=== PATIENT | male | born 1955 | race Caucasian/White ===

== ENCOUNTER 2020-07-19 11:49 | Day surgery (SDC) | payer OTHER, SELFPAY ==
--- NOTE | 2020-07-16 14:16 | P.CONAN_ITS ---
Documented by User: Sandie Do 07/16/20 14:17 HPI - Anesthesia Eval Consult details Narrative: 65yo M for Upper Endoscopy with balloon dilation and Colonoscopy [facility] Past Medical History Medical History GERD (gastroesophageal reflux disease) HTN (hypertension) Pyloric stenosis Surgical History Surgical History History of ear surgery History of esophagogastroduodenoscopy (EGD) Social History Social History Smoking Status: Never smoker Use of substances other than those prescribed or required for medical reasons: No Advance Directives: No Advance Directives Information Provided: Yes Meds Allergies Allergy/AdvReac Type Severity Reaction Status Date / Time No Known Allergies Allergy Verified 07/19/20 12:08 Home Medications Medication Instructions Recorded Confirmed Type lisinopril 07/16/20 History omeprazole 07/16/20 07/16/20 History Exam Exam Date and Time: July 16, 2020 141 Assessment and Plan Assessment Anesthesia Assessment: Chart Reviewed Documented by User: Agustina Christensen 07/19/20 13:17 [facility] Past Medical History Medical History GERD (gastroesophageal reflux disease) HTN (hypertension) Pyloric stenosis Surgical History Surgical History History of ear surgery History of esophagogastroduodenoscopy (EGD) Social History Social History Smoking Status: Never smoker Use of substances other than those prescribed or required for medical reasons: No Advance Directives: No Advance Directives Information Provided: Yes Meds Allergies Allergy/AdvReac Type Severity Reaction Status Date / Time No Known Allergies Allergy Verified 07/19/20 12:08 Home Medications Medication Instructions Recorded Confirmed Type lisinopril 07/16/20 History omeprazole 07/16/20 07/16/20 History Exam Airway Mallampati Class: II TM Dist: >3cm Neck ROM: Full Heart: RRR Lungs: CTA BL Assessment and Plan Assessment Anesthesia Assessment: Anesthesia Plan Discussed and Chart Reviewed Final Anesthetic Review NPO: Yes ASA Class: II Final Preanesthetic Review: Meds/Allgs Chart Reviewed and Consent Obtained/Reviewed Patient Risk: Intermediate Procedure Risk: Intermediate Anesthetic Plan Anesthetic Plan: MAC: Disposition: Standard PACU
[2020-07-19 12:09] VITALS: BMI 25.5
[2020-07-19 12:15] VITALS: BP 150/79; PULSE 59; RESP 16; TEMP 35.9; O2SAT 97
[2020-07-19] MEDS: Lactated Ringers 1,000 ML 100 ML IVCONT (12:28)
[2020-07-19 14:28] VITALS: BP 136/80; PULSE 72; RESP 18; TEMP 36.1; O2SAT 96
--- NOTE | 2020-07-19 14:39 | PM.OP ---
Brief Operative Note Date of Service: 07/19/20 Pre-op diagnosis: Dysphagia, Colorectal cancer screening Post-op diagnosis: other (Esophageal stricture, Hiatal hernia, colon polyp, diverticulosis) Procedure: EGD with Balloon Dilation of esophageal stricture, Colonoscopy to cecum and TI with biopsy and removal of polyp Surgeon: Pee Barron Anesthesia: MAC Estimated blood loss (mL): 3.0 Pathology: other (A. Cecal polyp) Condition: stable Disposition: PACU
[2020-07-19 14:43] VITALS: BP 160/83; PULSE 56; RESP 18; TEMP 36.1; O2SAT 97
--- NOTE | 2020-07-19 17:25 | OP_ITS ---
SURGEON: Pee Barron MD INDICATIONS: The patient presents for evaluation of gastroesophageal reflux, dysphagia, and colorectal cancer screening. Full consent has been obtained from him for both procedures, including risks of bleeding and perforation. PREOPERATIVE DIAGNOSIS: POSTOPERATIVE DIAGNOSIS: PROCEDURE PERFORMED: Esophagogastroduodenoscopy with balloon dilation of esophageal stricture, and colonoscopy to cecum with biopsy and removal of polyp. ESTIMATED BLOOD LOSS: COMPLICATIONS: ANESTHESIA: Monitored anesthesia care. ASSISTANTS: SPECIMENS: DESCRIPTION OF PROCEDURE: The patient was placed in the left lateral decubitus position. The Olympus video gastroscope was passed in the posterior oropharynx and upper esophagus under direct vision. The scope was passed slowly into the distal esophagus. The gastroesophageal junction appeared at 36 cm. This area was notable for a circumferential fibrotic benign-appearing stricture, which allowed easy passage of the scope into the stomach. There was a small hiatal hernia. The scope was advanced to pylorus and duodenum cannulated to the descending portion. The duodenum including the bulb appeared normal without mass or ulceration. The scope was withdrawn back to the stomach. The gastric antrum and body appeared normal with good peristalsis. The scope was retroflexed visualizing the proximal stomach carefully, which appeared normal, without any sign of mass or ulceration. The scope was straightened and withdrawn back to the esophagus. Given the symptomatology, I did use a [employer] Incremental balloon to dilate the esophageal stricture from 18 mm to 19 mm to 20 mm at the recommended pressure for between 30 and 60 seconds each. Post dilation, there was clear disruption of the stricture with some heme noted. There was no sign of any esophagitis nor Plunkett's esophagus. The scope was withdrawn from the patient. He was turned around for the colonoscopy. The digital rectal exam revealed no abnormalities. The Olympus video pediatric colonoscope was entered into the rectum and advanced easily to the cecum. Once in the cecum, I did identify cecal pouch with appendiceal orifice and a normal-appearing ileocecal valve. The terminal ileum was cannulated and appeared normal. The scope withdrawn back in the colon. The entire cecum and ileocecal valve appeared normal other than an approximately 3 or 4 mm polyp near the appendiceal orifice that was biopsied and completely removed with cold biopsy forceps. The scope was then slowly withdrawn assessing all mucosal surfaces carefully. Preparation was excellent. I did not visualize any sign of other polyps, colitis, or angiodysplasia. There was a mild amount of sigmoid diverticulosis. In the rectum, scope was retroflexed visualizing small internal hemorrhoids, but no other pathology. The rectal mucosa appeared normal. The scope was straightened and withdrawn from the patient. He tolerated both procedures well and was returned to the recovery area in stable condition. IMPRESSION: 1. Distal esophageal stricture, status post balloon dilation. 2. Small hiatal hernia. 3. Small colon polyp, status post biopsy removal. 4. Diverticulosis. 5. Internal hemorrhoids. PLAN: The results of the biopsy will be checked. If the colon polyp is a tubular adenoma, I would recommend a followup colonoscopy in 5 years. If it is only hyperplastic, I would recommend a followup colonoscopy in 10 years. He has been using omeprazole 20 mg daily and I shall increase that to 20 mg b.i.d. for 1 month and then go back to once a day thereafter. He was advised to see me in 2 to 3 months for a followup visit. MD ANTHONY De Anda/WILLIS / [id number]
== END 2020-07-19 15:01 | disposition home or self-care (01) ==
PROVIDERS: PCP Internal Medicine; Visit Provider Internal Medicine
PROC: (CPT 45380; principal; 2020-07-19 14:30)
DX: Z12.11 Encounter for screening for malignant neoplasm of colon (principal); D12.0 Benign neoplasm of cecum; K57.30 Diverticulosis of large intestine without perforation or abscess without bleeding; K64.8 Other hemorrhoids; K22.2 Esophageal obstruction; K21.9 Gastro-esophageal reflux disease without esophagitis; K44.9 Diaphragmatic hernia without obstruction or gangrene; I10 Essential (primary) hypertension; Z79.899 Other long term (current) drug therapy
CPT/HCPCS: 45380; 43249; 88305; C1726

== ENCOUNTER 2023-02-24 21:29 | Emergency (ER) | payer OTHER, SELFPAY ==
[2023-02-24 21:45] VITALS: BP 167/83; PULSE 71; RESP 16; TEMP 37.1; O2SAT 95; BMI 26.7
--- NOTE | 2023-02-25 00:51 | ED.GENADULT ---
HPI - General Adult General Chief complaint: Skin/Abscess/Foreign Body Stated complaint: body rash Time Seen by Provider: 02/25/23 00:20 Source: patient, family (), RN notes reviewed and old records reviewed Mode of arrival: ambulatory Limitations: no limitations History of Present Illness HPI narrative: 67-year-old male with past medical history significant for hypertension, GERD presents for evaluation of a rash. Patient reports that 10 days ago he was out in the yard and ?I got bit by something on the back of her neck. ? He states that 2 days later he has swelling around his eyes and face. [facility] felt as though it was a delayed allergic reaction and discharge the patient with prednisone and an EpiPen although he did not use the EpiPen. Patient reports that he then developed a red macular papular rash despite a prednisone taper and followed up with urgent care about 5 days ago Urgent care for the patient had poison shagufta and prescribed another course of prednisone which the patient was taking 30 mg daily instead of the prescribed taper for his . He has also been using hydroxyzine 25 mg without any improvement in his itching rash The patient states that the rash is both itchy and painful. Today his noticed that he had some bruising to his bilateral flanks/abdomen which led the patient to the ER today. Related Data Home Medications Medication Instructions Recorded Confirmed lisinopril 07/16/20 omeprazole 07/16/20 07/16/20 Allergies Allergy/AdvReac Type Severity Reaction Status Date / Time No Known Allergies Allergy Verified 07/19/20 12:08 Review of Systems Constitutional: Constitutional: Reports as per HPI, Denies chills, Denies fatigue, Denies fever(s) and Denies headache(s) ENT: Denies headache(s) Cardiovascular: Cardiovascular: Denies chest pain and Denies dyspnea Respiratory: Respiratory: Denies cough and Denies dyspnea Gastrointestinal: Gastrointestinal: Denies abdominal pain, Denies constipation and Denies vomiting Genitourinary: Genitourinary: Denies difficulty urinating and Denies dysuria Integumentary/Breasts: Skin/Breast: Reports pruritus, Reports erythema and Reports rash Neurologic: Denies headache(s) and Denies focal weakness Endocrine: Endocrine: Denies fatigue [facility] Past Medical History Medical History GERD (gastroesophageal reflux disease) HTN (hypertension) Pyloric stenosis Surgical History History of ear surgery History of esophagogastroduodenoscopy (EGD) Social History Social History Advance Directives: No Advance Directives Information Provided: Yes Physical Exam ED Vital Signs: Vital Signs - 24 hr 02/24/23 21:45 Temperature 98.7 F Pulse Rate 71 Respiratory Rate 16 Blood Pressure 167/83 H Pulse Oximetry 95 Oxygen Delivery Method Room Air BMI result Body Mass Index 26.7 Const General: healthy appearing, comfortable, no acute distress, alert and awake Nutritional Appearance: well nourished Orientation/consciousness: patient oriented x3 HENMT Head: Yes normocephalic and Yes atraumatic Eyes Eyelids: Yes eyelids normal Conjunctivae: conjunctivae normal Sclerae: sclerae normal Corneas: corneas normal Pupils: Equal, round and reactive pupils present EOM: EOMs intact bilaterally Neck Neck: Yes full ROM Resp Effort & Inspection: normal respiratory effort, able to speak in complete sentences and not labored Cardio Rate: regular rate Rhythm: regular rhythm GI Inspection: No distended Skin Other: Patient has diffuse, maculopapular rash to most of his legs. He does have an area of the right santos that appears consistent with vasculitis with small petechiae. The rash to his abdomen/both flanks it is consistent with urticaria, no obvious macular papular lesions in this area. No significant facial edema at this time. No erythema migrans General skin exam: elasticity normal Neuro General: patient oriented x3 Cranial nerves: Yes Equal, round and reactive pupils present and Yes Bilaterally intact EOM present Cognition (Neuro): normal cognition Extrem Other: Moving all extremities well without any obvious deformities Course Reevaluation(s) Reevaluation #1: Patient's labs reviewed without any concerning abnormalities. I discussed this with the patient. He will continue symptomatic care and he will follow-up with dermatology at the [place]. Time: 01:48 Medical Decision Making Medical Decision Making MDM Narrative: 67-year-old male presents for evaluation of a rash. He has completed 2 courses of prednisone in the last 10 days he has been taking antihistamines without improvement. Due to the development of new symptoms including ecchymosis, we will check labs to check platelet count, coags. The rash does not appear consistent with bacterial infection. Tick-borne studies were ordered. We can rule out ITP/TTP, the patient can likely be discharged to follow-up with dermatology Differential Diagnosis Differential Diagnoses: The differential diagnosis associated with the presentation includes Acute rash Vasculitis Allergic reaction Urticaria Cellulitis ITP TTP Lab Data MDM Lab Attestation statement: I reviewed the patient's lab results. Patient has a mild leukocytosis of 12.4 kg. This may be reactive to his prednisone use. Hemoglobin within normal limits at 14.1 with a hematocrit just below normal at 40.0. Sodium potassium within normal limits, chloride is just above normal 111, CO2 is psis below normal at 21. Patient's renal function is significant for a BUN of 20 it is just above normal, creatinine of 1.01 which is within normal limits. No significant transaminitis 02/25/23 01:04 02/25/23 01:04 Labs: Lab Results 02/25/23 02/25/23 02/25/23 Range/Units 01:04 01:04 01:04 WBC 12.4 H (4.8-10.8) X10*3/uL RBC 4.83 (4.60-5.80) X10*6/uL Hgb 14.1 (14.0-18.0) g/dl Hct 40.0 L (42.0-52.0) % MCV 82.8 (80.0-98.0) fL MCH 29.2 (27.0-33.0) pg MCHC 35.3 (31.0-36.0) g/dl RDW 14.0 (11.0-16.0) % Plt Count 196 (160-400) X10*3/uL MPV 9.0 L (9.4-12.4) fL Immature Gran % (Auto) 1.0 H (0.0-0.4) % Neut % (Auto) 79.8 H (45-73) % Lymph % (Auto) 12.2 L (20-40) % Roberts % (Auto) 6.0 (2-11) % Eos % (Auto) 0.9 (0-4) % Baso % (Auto) 0.1 (0-2) % Lymph # (Auto) 1.5 (1.2-4.9) X10*3/uL Roberts # (Auto) 0.8 (0.1-1.2) X10*3/uL Eos # (Auto) 0.1 (0.0-0.4) X10*3/uL Baso # (Auto) 0.0 (0.0-0.2) X10*3/uL Abs Immat Gran (auto) 0.12 H (0.00-0.03) X10*3/uL Absolute Neuts (auto) 9.9 H (2.0-8.3) x10*3/uL Absolute Nucleated RBC 0.000 (0.0-0.012) X10*3/uL Nucleated RBC % (auto) 0.0 (0.0-0.2) /100WBC PT 11.0 L (11.1-13.3) SEC INR 0.9 (0.9-1.1) APTT 25.8 L (26.0-36.4) SEC Sodium 143 (135-145) mmol/L Potassium 3.5 (3.3-5.1) mmol/L Chloride 111 H (96-108) mmol/L Carbon Dioxide 21 L (22-29) mmol/L Anion Gap 15 (12-20) BUN 20 H (9-16) mg/dL Creatinine 1.01 (0.5-1.4) mg/dL Estim Creat Clear Calc 70.9 Estimated GFR > 60 Random Glucose 126 H (60-115) mg/dL Calcium 9.4 (8.4-10.2) mg/dL Total Bilirubin 0.6 (0.0-1.0) mg/dL AST 34 (5-37) U/L ALT 59 H (0-40) U/L Alkaline Phosphatase 57 (39-117) U/L Total Protein 7.0 (6.5-8.0) g/dL Albumin 4.1 (3.5-5.0) g/dL Lipase 50 (8-78) U/L Discharge Plan Discharge Clinical Impression: Acute maculopapular rash Patient Disposition: Home, Self-Care Instructions: Acute Rash (ED) Additional Instructions: Your blood work was without any significant abnormalities. The tick-borne disease studies will not results today, we will call you with any abnormal results. In the meantime, you may continue your prednisone You may use Benadryl up to 50 mg every 6 hours as needed for itching and rash You need [facility] Return for new or worsening symptoms Prescriptions: No Action lisinopril omeprazole
[2023-02-25 01:10] LABS: MANUAL DIFF FLAG NO
[2023-02-25 01:13] LABS: Basophils Percent Auto 0.1 % (0-2); Eosinophils Absolute Auto 0.1 X10*3/uL (0.0-0.4); Eosinophils Percent Auto 0.9 % (0-4); Hemoglobin 14.1 g/dl (14.0-18.0); Imm Gran Abs Auto 0.12 X10*3/uL (0.00-0.03); Lymphocytes Absolute Auto 1.5 X10*3/uL (1.2-4.9); Lymphocytes Percent Auto 12.2 % (20-40); Mean Corpuscular HGB Conc 35.3 g/dl (31.0-36.0); Mean Corpuscular Hemoglobin 29.2 pg (27.0-33.0); Mean Corpuscular Volume 82.8 fL (80.0-98.0); Monocytes Absolute Auto 0.8 X10*3/uL (0.1-1.2); Neutrophils Absolute Auto 9.9 x10*3/uL (2.0-8.3); Neutrophils Percent Auto 79.8 % (45-73); Platelet Count 196 X10*3/uL (160-400); Red Blood Count 4.83 X10*6/uL (4.60-5.80); White Blood Count 12.4 X10*3/uL (4.8-10.8)
[2023-02-25 01:21] LABS: INTERNATIONAL NORM RATIO 0.9 (0.9-1.1)
[2023-02-25 01:24] LABS: Partial Thromboplastin Time 25.8 SEC (26.0-36.4)
[2023-02-25 01:28] LABS: Alanine Aminotransferase 59 U/L (0-40); Albumin Level 4.1 g/dL (3.5-5.0); Alkaline Phosphatase 57 U/L (39-117); Anion Gap 15 (12-20); Aspartate Amino Transferase 34 U/L (5-37); Bilirubin Total 0.6 mg/dL (0.0-1.0); Blood Urea Nitrogen 20 mg/dL (9-16); Calcium 9.4 mg/dL (8.4-10.2); Carbon Dioxide 21 mmol/L (22-29); Chloride 111 mmol/L (96-108); Creatinine Clr Calc Pharmacy 70.9; Estimated Glomerular Filt Rate > 60; Glucose Random 126 mg/dL (60-115); Lipase 50 U/L (8-78); Potassium 3.5 mmol/L (3.3-5.1); Sodium 143 mmol/L (135-145)
[2023-02-25 02:05] VITALS: BP 154/81; PULSE 68; RESP 16; TEMP 36.1; O2SAT 97
[2023-02-26 20:58] LABS: Lyme Abs Screen <0.90 index
[2023-03-01 18:04] LABS: Rocky Mtn. Spot. Fever IgG Ab Not Detected (Not Detected); Rocky Mtn.Spot. Fever IgM Ab Not Detected (Not Detected)
[2023-03-09 09:18] LABS: A. Phagocytophilum Ab IgG <1:64 (<1:64); A. Phagocytophilum Ab IgM <1:20 (<1:20); E. Chaffeensis Ab IgG <1:64 (<1:64); E. Chaffeensis Ab IgM <1:20 (<1:20)
== END 2023-02-25 02:09 | disposition home or self-care (01) ==
PROVIDERS: Physician Assistant; Emergency Provider Internal Medicine
DX: L50.9 Urticaria, unspecified (principal); L29.8 Other pruritus; D72.829 Elevated white blood cell count, unspecified; R58 Hemorrhage, not elsewhere classified; I10 Essential (primary) hypertension; K31.1 Adult hypertrophic pyloric stenosis; Z79.899 Other long term (current) drug therapy
CPT/HCPCS: 36415; 80053; 83690; 85025; 85610; 85730; 86617; 86618; 86666; 86757; 99283; 99284

== ENCOUNTER 2024-03-03 11:08 | Emergency (ER) | payer OTHER, SELFPAY ==
--- NOTE | ~2024-03-03 | XR_ITS ---
EXAMINATION: XR CHEST CLINICAL INFORMATION: Chest pain COMPARISON: None available. TECHNIQUE: 2 views of the chest were obtained. FINDINGS: Lungs are clear. No pulmonary vascular congestion. There is no pleural effusion. The heart size is normal. The cardiac and mediastinal contours are normal. There are calcifications of the thoracic aorta. There are multilevel degenerative changes of dorsal spine. XR/XR chest 2V IMPRESSION: Unremarkable examination. Electronically signed by: Tyree Boyd MD 03/03/2024 03:05 PM EDT RP
--- NOTE | 2024-03-03 11:10 | ECG_ITS ---
Test Reason : cp Blood Pressure : / mmHG Vent. Rate : 064 BPM Atrial Rate : 064 BPM P-R Int : 126 ms QRS Dur : 096 ms QT Int : 434 ms P-R-T Axes : -20 018 033 degrees QTc Int : 447 ms Normal sinus rhythm Nonspecific T wave abnormality Abnormal ECG No previous ECGs available Referred By: Inez Ojeda Electronically Signed By:KATIE SOLITARIO
[2024-03-03 12:08] VITALS: BP 127/78; PULSE 67; RESP 18; TEMP 36.3; O2SAT 97; BMI 25.7
--- NOTE | 2024-03-03 12:09 | ED.GENADULT ---
HPI - General Adult General Chief complaint: Chest Pain Stated complaint: chest pain Time Seen by Provider: 03/03/24 18:44 Source: patient Mode of arrival: ambulatory Limitations: no limitations History of Present Illness ED Provider: Inez Ojeda PA-C HPI narrative: Patient is a 68 year old assigned male at with a history of HTN presenting to the emergency department today with central chest pain. Patient states that he had an episode of central chest pain that burned and caused a bad taste in his mouth but has since resolved. Patient denies any dizziness, lightheadedness, abdominal pain, nausea, vomiting, fever, chills, blurry vision, double vision, loss of vision, difficulty breathing, shortness of breath, back pain, night sweats, pain with urination, increased urinary frequency, increased urinary urgency, blood in his urine or stool, syncope or a near syncopal episode, recent trauma or falls, bowel incontinence, bladder incontinence, or any other complaints at this time. Relieving factors: none Exacerbating factors: none Associated symptoms: chest pain Treatments prior to arrival: none Related Data Home Medications ?Medication ?Instructions ?Recorded ?Confirmed lisinopril 07/16/20 omeprazole 07/16/20 07/16/20 Allergies Allergy/AdvReac Type Severity Reaction Status Date / Time No Known Allergies Allergy Verified 03/03/24 12:11 Review of Systems Constitutional: Constitutional: Reports no additional constitutional complaints, Denies chills, Denies fever(s) and Denies night sweats Eyes: Eyes: Reports no additional eye complaints, Denies blurry vision, Denies change in vision, Denies diplopia, Denies eye discharge, Denies loss of vision and Denies eye pain ENT: Denies dizziness Cardiovascular: Cardiovascular: Reports no additional cardiovascular complaints, Reports chest pain, Denies lightheadedness, Denies Loss of Consciousness and Denies dyspnea Respiratory: Respiratory: Reports no additional respiratory complaints and Denies dyspnea Gastrointestinal: Gastrointestinal: Reports no additional gastrointestinal complaints, Denies abdominal pain, Denies melena, Denies hematochezia, Denies change in bowel habits and Denies change in stool character Genitourinary: Genitourinary: Reports no additional male genitourinary complaints, Denies hematuria, Denies oliguria, Denies difficulty urinating, Denies dysuria, Denies urinary frequency, Denies urinary hesitancy, Denies urinary incontinence and Denies urinary urgency Musculoskeletal: Musculoskeletal: Reports no additional musculoskeletal complaints, Denies numbness and Denies tingling Neurologic: Denies dizziness, Denies loss of vision, Denies numbness and Denies tingling Psychiatric: Psychiatric: Reports no additional psychiatric complaints Endocrine: Endocrine: Reports no additional endocrine complaints Hematologic/Lymphatic: Hematologic/Lymphatic: Reports no additional hematologic/lymphatic complaints Allergic/Immunologic: Allergic/Immunologic: Reports no additional allergic/immunologic complaints [facility] Past Medical History Attestation statement: The following information was validated with the patient. Source: old records reviewed and nursing notes reviewed Medical History Pyloric stenosis GERD (gastroesophageal reflux disease) HTN (hypertension) Surgical History History of ear surgery History of esophagogastroduodenoscopy (EGD) Social History Social History Alcohol intake: never Advance Directives: Yes Advance Directives Information Provided: No Advance Directives on File: No Do you have a plan to hurt others: No Plan Physical Exam ED Vital Signs: Vital Signs - 24 hr 03/03/24 12:08 03/03/24 18:47 Temperature 97.4 F 97.4 F Pulse Rate 67 66 Respiratory Rate 18 18 Blood Pressure 127/78 138/78 Pulse Oximetry 97 96 Oxygen Delivery Method Room Air Room Air BMI result Body Mass Index 25.7 Const General: cooperative, no acute distress, alert and awake Nutritional Appearance: well nourished Orientation/consciousness: patient oriented x3 Limitations: no limitations [facility] Head: Yes normal to inspection and Yes atraumatic Ears: hearing grossly normal bilaterally and external ears normal General nose exam: Normal external nose present, no nasal discharge noted and no epistaxis Face and sinus: Yes normal facial exam, No abrasion and No laceration Mouth: Normal oral and palatal mucosa present, no drooling and no muffled voice Eyes General: appearance normal, both eyes and all related structures Periorbital: periorbital findings normal Eyelids: Yes eyelids normal Conjunctivae: conjunctivae normal Pupils: Equal, round and reactive pupils present EOM: EOMs intact bilaterally Neck Neck: Yes normal visual inspection, Yes full ROM and Yes no lymphadenopathy Chest Chest palpation & inspection: normal inspection of the chest Resp Effort & Inspection: normal respiratory effort and able to speak in complete sentences GI Inspection: Yes normal to inspection Neuro General: patient oriented x3 and moves all extremities Cranial nerves: Yes Equal, round and reactive pupils present Cognition (Neuro): normal cognition Extrem General: Yes normal to inspection, Yes full ROM and Yes capillary refill normal Psych Appearance: grossly normal Mental Status: mental status grossly normal Affect: normal affect Attitude: cooperative Thought process: Normal thought process present Thought content: Normal thought content present Insight: Good insight present (Psych) Course Course Course Narrative: RME performed by Inez Ojeda PA-C. Patient is a 68 year old assigned male at presenting to the emergency department with central chest pain. Patient states that he was having chest pain that felt like someone sitting on his chest with a burning sensation and funny taste in his mouth. Detailed physical exam and review of systems are deferred to the health clinician. EKG, labs, imaging, and swabs ordered. Patient placed back in the waiting room pending room availability and results. Medical Decision Making Medical Decision Making MDM Narrative: Patient is a 68 year old assigned male at with a history of HTN presenting to the emergency department today with now resolved chest pain. Patient's physical exam was unremarkable. Patient's blood work was unremarkable. Patient's EKG was unremarkable. Patient's chest x-ray showed no acute process. I explained my physical exam findings as well as all test results to the patient. I answered all questions asked by the patient. I stressed the importance of the patient taking his medication as directed (either prescribed or as the over the counter packaging recommends). I stressed the importance of the patient following up with his primary care provider. I stressed the importance of the patient returning to the emergency department immediately if his symptoms were to worsen or if he were to develop any dizziness, shortness of breath, difficulty breathing, chest pain, blurry vision, loss of vision, nausea, vomiting, abdominal pain, fever, chills, back pain, or any other complaints. Patient verbalized agreement and understanding with this treatment plan and discharge. Differential Diagnosis Differential Diagnoses: The differential diagnosis associated with the presentation includes Atypical chest pain GERD NSTEMI STEMI Admission/Observation Consideration of admission/observation: Escalation of care including admission/observation considered Patient would have been admitted to the hospital had his work up had any findings where hospital admission was appropriate and his clinical presentation warranted hospital admission. Lab Data [facility] Lab Attestation statement: I reviewed the patient's lab results. My interpretation of these results are in the MDM Rationale portion of this note. 03/03/24 12:32 03/03/24 12:32 Labs: Lab Results 03/03/24 03/03/24 03/03/24 Range/Units 12:31 12:32 18:05 WBC 6.9 (4.8-10.8) X10*3/uL RBC 5.16 (4.60-5.80) X10*6/uL Hgb 15.0 (14.0-18.0) g/dl Hct 42.4 (42.0-52.0) % MCV 82.2 (80.0-98.0) fL MCH 29.1 (27.0-33.0) pg MCHC 35.4 (31.0-36.0) g/dl RDW 13.9 (11.0-16.0) % Plt Count 227 (160-400) X10*3/uL MPV 9.3 L (9.4-12.4) fL Immature Gran % (Auto) 0.3 (0.0-0.4) % Neut % (Auto) 61.2 (45-73) % Lymph % (Auto) 25.8 (20-40) % [place] % (Auto) 7.3 (2-11) % Eos % (Auto) 4.8 H (0-4) % Baso % (Auto) 0.6 (0-2) % Lymph # (Auto) 1.8 (1.2-4.9) X10*3/uL [place] # (Auto) 0.5 (0.1-1.2) X10*3/uL Eos # (Auto) 0.3 (0.0-0.4) X10*3/uL Baso # (Auto) 0.0 (0.0-0.2) X10*3/uL Abs Immat Gran (auto) 0.02 (0.00-0.03) X10*3/uL Absolute Neuts (auto) 4.2 (2.0-8.3) x10*3/uL Absolute Nucleated RBC 0.000 (0.0-0.012) X10*3/uL Nucleated RBC % (auto) 0.0 (0.0-0.2) /100WBC PT 12.2 (11.1-13.3) SEC INR 1.0 (0.9-1.1) APTT 33.8 (26.0-36.8) SEC Sodium 143 (135-145) mmol/L Potassium 3.5 (3.3-5.1) mmol/L Chloride 110 H (96-108) mmol/L Carbon Dioxide 23 (22-29) mmol/L Anion Gap 14 (12-20) BUN 14 (9-16) mg/dL Creatinine 1.06 (0.5-1.4) mg/dL Estim Creat Clear Calc 66.6 Estimated GFR > 60 Random Glucose 86 (60-115) mg/dL Calcium 9.7 (8.4-10.2) mg/dL Magnesium 2.1 (1.6-2.6) mg/dL Total Bilirubin 0.8 (0.0-1.0) mg/dL AST 36 (5-37) U/L ALT 48 H (0-40) U/L Alkaline Phosphatase 64 (39-117) U/L Troponin I High Sens 3.6 4.2 (<3.5-35.0) ng/L Total Protein 7.9 (6.5-8.0) g/dL Albumin 4.6 (3.5-5.0) g/dL Influenza Type A (PCR) NEGATIVE (Negative) Influenza Type B (PCR) NEGATIVE (Negative) RSV RNA Qual (PCR) NEGATIVE (Negative) SARS-CoV-2 RNA (RT-PCR) NEGATIVE (Negative) Independent Interpretation I performed an independent interpretation of an: EKG and Plain X-Ray Interpretation: My interpretation is in agreement with the radiologist's impression of this imaging study. EXAMINATION: XR CHEST CLINICAL INFORMATION: Chest pain COMPARISON: None available. TECHNIQUE: 2 views of the chest were obtained. FINDINGS: Lungs are clear. No pulmonary vascular congestion. There is no pleural effusion. The heart size is normal. The cardiac and mediastinal contours are normal. There are calcifications of the thoracic aorta. There are multilevel degenerative changes of dorsal spine. XR/XR chest 2V IMPRESSION: Unremarkable examination. Electronically signed by: Tyree Boyd MD 03/03/2024 03:05 PM EDT RP Dictated By: Tyree Boyd MD Signed By: Electronically signed by Tyree Boyd MD 03/03/24 1505 Vent. Rate: 064 BPM Atrial Rate: 064 BPM P-R Int: 126 ms QRS Dur: 096 ms QT Int: 434 ms P-R-T Axes: -20 018 033 degrees QTc Int: 447 ms Normal sinus rhythm Nonspecific T wave abnormality Abnormal ECG No previous ECGs available DD/ [id number] Radiology Impression Discussion of test interpretation with radiology: I have reviewed the radiologist's reading. Discharge Plan Discharge Clinical Impression: Atypical chest pain Patient Disposition: Home, Self-Care Instructions: Chest Pain (DC) Additional Instructions: Follow up with your primary care provider. Return to the emergency department immediately if your symptoms worsen or if you develop any dizziness, shortness of breath, difficulty breathing, chest pain, blurry vision, loss of vision, nausea, vomiting, abdominal pain, fever, chills, back pain, or any other complaints. Please see the information below about our Patient Portal. If you are not yet enrolled in the [facility] Patient Portal, you will receive an enrollment email invitation following your visit to any [facility] care setting. You may also self-enroll in the Patient Portal by visiting our website: [email or web address] The following information is required to access the Patient Portal: - Your [facility] Medical Record Number - Your personal home email address (must match what is in your electronic medical record, Registration staff can assist with this) - Name - Date of Capabilities of the Patient Portal: - Message some providers - View upcoming appointments - Access your health summary, medical history, and visit history - View current conditions and allergies - View procedure and lab results - View your medications, including guidelines, side effects, and precautions - Complete pre-appointment questionnaires requested by your provider - Ready summary reports of your office visits and procedures To access the Patient Portal Mobile Je, follow these directions: - Search [employer] in the Je Store or [employer] Store - Download the Je - Search for [facility] - Enter your login/password Prescriptions: No Action lisinopril omeprazole Referrals: Sunshine Patel MD [Primary Care Provider] - Interventions: ED Discharge Assessment Last Done: 03/03/24 18:47 Discharge Date/Time: 03/03/24 18:48 Print Language: Yemeni
[2024-03-03 12:36] LABS: MANUAL DIFF FLAG NO
[2024-03-03 12:38] LABS: Basophils Percent Auto 0.6 % (0-2); Eosinophils Absolute Auto 0.3 X10*3/uL (0.0-0.4); Eosinophils Percent Auto 4.8 % (0-4); Hematocrit 42.4 % (42.0-52.0); Imm Gran Abs Auto 0.02 X10*3/uL (0.00-0.03); Imm Gran Pct Auto 0.3 % (0.0-0.4); Lymphocytes Absolute Auto 1.8 X10*3/uL (1.2-4.9); Lymphocytes Percent Auto 25.8 % (20-40); Mean Corpuscular HGB Conc 35.4 g/dl (31.0-36.0); Mean Corpuscular Hemoglobin 29.1 pg (27.0-33.0); Mean Corpuscular Volume 82.2 fL (80.0-98.0); Mean Platelet Volume 9.3 fL (9.4-12.4); Monocytes Absolute Auto 0.5 X10*3/uL (0.1-1.2); Monocytes Percent Auto 7.3 % (2-11); Neutrophils Absolute Auto 4.2 x10*3/uL (2.0-8.3); Neutrophils Percent Auto 61.2 % (45-73); Platelet Count 227 X10*3/uL (160-400); Red Blood Count 5.16 X10*6/uL (4.60-5.80); Red Cell Distribution Width 13.9 % (11.0-16.0); White Blood Count 6.9 X10*3/uL (4.8-10.8)
[2024-03-03 12:54] LABS: Alanine Aminotransferase 48 U/L (0-40); Albumin Level 4.6 g/dL (3.5-5.0); Alkaline Phosphatase 64 U/L (39-117); Anion Gap 14 (12-20); Aspartate Amino Transferase 36 U/L (5-37); Bilirubin Total 0.8 mg/dL (0.0-1.0); Blood Urea Nitrogen 14 mg/dL (9-16); Calcium 9.7 mg/dL (8.4-10.2); Carbon Dioxide 23 mmol/L (22-29); Chloride 110 mmol/L (96-108); Creatinine Clr Calc Pharmacy 66.6; Estimated Glomerular Filt Rate > 60; Glucose Random 86 mg/dL (60-115); Magnesium 2.1 mg/dL (1.6-2.6); Potassium 3.5 mmol/L (3.3-5.1); Sodium 143 mmol/L (135-145); Total Protein 7.9 g/dL (6.5-8.0)
[2024-03-03 13:01] LABS: Troponin-I High Sensitivity 3.6 ng/L (<3.5-35.0)
[2024-03-03 13:22] LABS: Prothrombin Time 12.2 SEC (11.1-13.3)
[2024-03-03 13:24] LABS: Partial Thromboplastin Time 33.8 SEC (26.0-36.8)
[2024-03-03 13:27] LABS: Influenza A PCR NEGATIVE (Negative); Influenza B PCR NEGATIVE (Negative); Resp Syncy Virus RNA Qual PCR NEGATIVE (Negative); SARS COV2 PCR INHOUSE NEGATIVE (Negative)
[2024-03-03 18:38] LABS: Troponin-I High Sensitivity 4.2 ng/L (<3.5-35.0)
[2024-03-03 18:47] VITALS: BP 138/78; PULSE 66; RESP 18; TEMP 36.3; O2SAT 96
== END 2024-03-03 18:48 | disposition home or self-care (01) ==
PROVIDERS: Physician Assistant Medical; Emergency Provider Internal Medicine; PCP Internal Medicine
DX: R07.89 Other chest pain (principal); I10 Essential (primary) hypertension; Z79.899 Other long term (current) drug therapy; Z03.818 Encounter for observation for suspected exposure to other biological agents ruled out
CPT/HCPCS: 0241U; 36415; 71046; 80053; 83735; 84484; 85025; 85610; 85730; 93005; 99283